=== PATIENT | male | born 1950 | race African-American/Black ===

== ENCOUNTER 2017-07-05 12:31 | Inpatient (IN) | payer OTHER, MEDICAID ==
[~2017-07-05] VITALS: Ht 165.1 cm; Wt 52.9 kg
[~2017-07-05 12:31] MED LIST: BEN10T PO; INSLANTI SC; METF-370 PO
[2017-07-05 13:16] LABS: Basophils # (auto) 0 uL; Basophils % (auto) 0.7 % (0.0-2.0); CONDITION Y; DEFINITIVE SEE PRINTOUT; Eosinophils # (auto) 0 uL; Eosinophils % (auto) 0.6 % (0.0-7.0); Hematocrit 39.7 % (41.0-53.0); Hemoglobin 13.2 g/dL (13.5-17.5); Lymphocytes # (auto) 1.6 uL; Lymphocytes % (auto) 32.7 % (10.0-50.0); Mean Corpuscular Hemoglobin 25.9 pg (28.0-32.0); Mean Corpuscular Hgb Conc. 33.2 g/dL (32.0-36.0); Mean Corpuscular Volume 78.1 fL (80.0-100.0); Mean Platelet Volume 9.5 fL (7.4-10.4); Monocytes # (auto) 0.3 uL; Monocytes % (auto) 6.7 % (0.0-12.0); Neutrophils # (auto) 2.9 uL; Neutrophils % (auto) 59.3 % (37.0-80.0); Platelet Count (auto) 250 10^3/uL (140-450); Red Cell Distribution Width 16.1 % (11.6-16.0); White Blood Cell 4.9 10^3/uL (4.4-10.8)
[2017-07-05] MEDS ORDERED: SODIUM CHLORIDE 0.9% 1,000 ML IV ONE (13:21)
[2017-07-05 13:35] LABS: Alkaline Phosphatase 90 U/L (45-117); Anion Gap 10 (5-15); Aspartate Aminotransferase 40 U/L (15-37); BUN/Creatinine Ratio 21.5; Bilirubin, Total 0.4 mg/dL (0.2-1.0); Blood Urea Nitrogen 43 mg/dL (7-18); Carbon Dioxide 24 mmol/L (21-32); Chloride 101 mmol/L (98-107); GFR African American 43 mL/min; GFR Non-African American 36 mL/min; Glucose 147 mg/dL (74-106); Potassium 4.7 mmol/L (3.5-5.1); Sodium 135 mmol/L (136-145); Total Protein 8.8 g/dL (6.4-8.2)
[2017-07-05] MEDS ORDERED: SODIUM CHLORIDE 0.9% 1,000 ML IV SCH (14:29)
[2017-07-05] MEDS ORDERED: DEXTROSE (50%) 50ML SYRG IV PRN (14:30)
[2017-07-05] MEDS ORDERED: ALBUTEROL SULF 2.5 MG/0.5ML(0.5%) NEB SOLN NEB PRN (14:30)
[2017-07-05] MEDS ORDERED: MORPHINE SULF INJ 2 MG/ML SYRINGE 1ML IV PRN (14:30)
[2017-07-05] MEDS ORDERED: TEMAZEPAM 15 MG CAP PO PRN (14:30)
[2017-07-05] MEDS ORDERED: LORazepam 0.5 MG TAB PO PRN (14:30)
[2017-07-05] MEDS ORDERED: NITROGLYCERIN 0.4 MG SL TAB SL PRN (14:30)
[2017-07-05] MEDS ORDERED: LACTULOSE 20Gm/30ML SOLN PO PRN (14:30)
[2017-07-05] MEDS ORDERED: HYDROcodone-ACET 5/325MG TAB PO PRN (14:30)
[2017-07-05] MEDS ORDERED: PANTOPRAZOLE 40 MG TAB PO SCH (15:15)
[2017-07-05 15:19] LABS: INR 1.03 (0.9-1.15); Partial Thromboplastin Time 25.4 sec (22.64-33.71); Prothrombin Time 11.2 sec (9.37-12.3)
[2017-07-05] MEDS ORDERED: PANTOPRAZOLE 40 MG/10 ML VIAL IV ONE (15:45)
[2017-07-05] MEDS ORDERED: cefTRIAXone 1GM/50ML D5W 50 ML IV ONE (15:45)
[2017-07-05] MEDS: SODIUM CHLORIDE 0.9% 1,000 ML IV SCH ×2 (16:08→22:20)
[2017-07-05] MEDS: ENOXAPARIN SOD 60 MG/0.6 ML SYRINGE SC SCH ×2 (16:08→22:22)
[2017-07-05] MEDS: CARVEDILOL 3.125 MG TAB PO SCH ×2 (16:09→21:59)
[2017-07-05] MEDS: ASPirin 81 mg TAB PO SCH (16:10)
[2017-07-05] MEDS: ACCU-CHEK COMFORT CURVE STRIP VI SCH ×2 (17:02→22:19)
[2017-07-05] MEDS: InsuLIN REG 1unit/0.01ml Soln (100units/ml) SC SCH ×2 (17:02→22:00)
[2017-07-05] MEDS: ACETAMINOPHEN 500 MG TAB PO PRN (17:09)
[2017-07-05 17:12] VITALS: BP 127/77
[2017-07-05 21:39] VITALS: BP 127/77
[2017-07-05] MEDS: metroNIDAZOLE 500MG/100ML 100 ML IV SCH (21:58)
[2017-07-05 22:00] VITALS: BP 109/73
[2017-07-05] MEDS ORDERED: ATORVASTATIN 20 MG TAB PO SCH (22:00)
[2017-07-06] MEDS: ACETAMINOPHEN 500 MG TAB PO PRN (00:56)
[2017-07-06] MEDS: MORPHINE SULF INJ 2 MG/ML SYRINGE 1ML IV PRN ×2 (04:53→09:38)
[2017-07-06 05:00] VITALS: BP 114/80
[2017-07-06] MEDS: SODIUM CHLORIDE 0.9% 1,000 ML IV SCH ×2 (05:37→12:23)
[2017-07-06] MEDS: metroNIDAZOLE 500MG/100ML 100 ML IV SCH ×2 (05:48→14:00)
[2017-07-06 05:53] LABS: Urine Bilirubin Negative (Negative); Urine Blood Negative /uL (Negative); Urine Color Yellow (Yellow); Urine Glucose Normal (Normal); Urine Hyaline Cast FEW /lpf (0 - 2); Urine Ketone Negative (Negative); Urine Mucus FEW (None Seen); Urine Nitrite Negative (Negative); Urine RBC <1 /hpf (0 - 3); Urine Squamous Epithelial Cell FEW /hpf (<5); Urine Urobilinogen Normal (Negative)
[2017-07-06 06:24] LABS: Basophils # (auto) 0 uL; CONDITION Y; DEFINITIVE SEE PRINTOUT; Eosinophils # (auto) 0 uL; Eosinophils % (auto) 0.9 % (0.0-7.0); Hematocrit 32.9 % (41.0-53.0); Hemoglobin 10.9 g/dL (13.5-17.5); Lymphocytes # (auto) 1.8 uL; Lymphocytes % (auto) 43.1 % (10.0-50.0); Mean Corpuscular Hemoglobin 25.5 pg (28.0-32.0); Mean Corpuscular Volume 77.4 fL (80.0-100.0); Mean Platelet Volume 10.1 fL (7.4-10.4); Monocytes # (auto) 0.3 uL; Monocytes % (auto) 7.4 % (0.0-12.0); Neutrophils # (auto) 1.9 uL; Neutrophils % (auto) 47.6 % (37.0-80.0); Platelet Count (auto) 205 10^3/uL (140-450); Red Cell Distribution Width 15.6 % (11.6-16.0); White Blood Cell 4.1 10^3/uL (4.4-10.8)
[2017-07-06] MEDS: InsuLIN REG 1unit/0.01ml Soln (100units/ml) SC SCH ×3 (06:37→17:00)
[2017-07-06] MEDS: ACCU-CHEK COMFORT CURVE STRIP VI SCH ×3 (06:37→17:00)
[2017-07-06 07:06] LABS: B-Type Natriuretic Peptide 5.46 pg/mL (0-100)
[2017-07-06 07:20] LABS: Albumin 3.4 g/dL (3.4-5.0); Alkaline Phosphatase 66 U/L (45-117); Amylase 171 U/L (25-115); Anion Gap 13 (5-15); Aspartate Aminotransferase 35 U/L (15-37); BUN/Creatinine Ratio 23.2; Bilirubin, Total 0.3 mg/dL (0.2-1.0); Blood Urea Nitrogen 44 mg/dL (7-18); Carbon Dioxide 20 mmol/L (21-32); Chloride 105 mmol/L (98-107); Cholesterol 112 mg/dL (< 200); GFR African American 46 mL/min; GFR Non-African American 38 mL/min; Glucose 74 mg/dL (74-106); HDL Cholesterol 53 mg/dL (40-59); LDL Cholesterol 63 mg/dL (< 100); Potassium 4.4 mmol/L (3.5-5.1); Sodium 138 mmol/L (136-145); Total Protein 7.3 g/dL (6.4-8.2); Triglycerides 77 mg/dL (< 150); Uric Acid 8.5 mg/dL (3.5-7.2)
[2017-07-06 07:46] LABS: Temperature: 23.5 C (20.0-25.0)
[2017-07-06 09:00] VITALS: BP 101/65
[2017-07-06] MEDS ORDERED: cefTRIAXone 1GM/50ML D5W 50 ML IV SCH (09:00)
[2017-07-06] MEDS: ENOXAPARIN SOD 60 MG/0.6 ML SYRINGE SC SCH (09:37)
[2017-07-06] MEDS: CARVEDILOL 3.125 MG TAB PO SCH (09:37)
[2017-07-06] MEDS: ASPirin 81 mg TAB PO SCH (09:37)
[2017-07-06] MEDS ORDERED: PANTOPRAZOLE 40 MG/10 ML VIAL IV SCH (10:00)
[2017-07-06 13:00] VITALS: BP 106/68
[2017-07-06 15:02] VITALS: BP 108/62
== END 2017-07-06 17:15 | disposition home health service (06) | DRG 684 ==
LOC: EDBD 12:31 → ER 12:35 → TELE 12:36 → TELE-EAST 16:38
PROVIDERS: ADMIT Internal Medicine; ATTEND Internal Medicine
DX: N17.0 Acute kidney failure with tubular necrosis (principal); F20.9 Schizophrenia, unspecified; I10 Essential (primary) hypertension; J45.909 Unspecified asthma, uncomplicated; E11.9 Type 2 diabetes mellitus without complications; E86.0 Dehydration; R09.02 Hypoxemia; F31.9 Bipolar disorder, unspecified; F10.20 Alcohol dependence, uncomplicated; F41.9 Anxiety disorder, unspecified; Z90.49 Acquired absence of other specified parts of digestive tract; Z87.891 Personal history of nicotine dependence; Z79.82 Long term (current) use of aspirin
CPT/HCPCS: 36415; 71010; 74176; 76775; 78582; 80053; 80061; 80307; 81001; 82150; 82550; 82570; 82962; 83036; 83690; 83880; 84100; 84156; 84300; 84443; 84484; 84550; 85025; 85379; 85610; 85652; 85730; 86141; 87081; 87086; 93005; 93306; 93970; 94761; 96361; 96374; C9113; J0696; J1815; J3490